=== PATIENT | female | born 1940 | race Caucasian/White ===

== ENCOUNTER 2018-07-08 12:15 | Day surgery (SDC) | payer OTHER ==
[~2018-07-08] VITALS: Ht 149.9 cm; Wt 55.5 kg
[2018-07-08 12:35] VITALS: BP 152/81
[2018-07-08] MEDS ORDERED: MIDAZolam 5mg/5ml vial ONE (13:04)
[2018-07-08] MEDS ORDERED: LIDOcaine Viscous 15ml cup ONE (13:04)
[2018-07-08] MEDS ORDERED: fentaNYL/PF 50MCG/1 ML 2ML syringe ONE (13:04)
[2018-07-08] MEDS ORDERED: PANT-47 PO (13:29)
[2018-07-08] MEDS ORDERED: CITA10TA9 PO (13:29)
[2018-07-08] MEDS ORDERED: ASPI-611 PO (13:30)
[2018-07-08] MEDS ORDERED: METO25TA6 PO (13:30)
[2018-07-08] MEDS ORDERED: SIMV20TA PO (13:30)
[2018-07-08] MEDS ORDERED: SUCR1TAB34 PO (13:31)
[2018-07-08 13:54] VITALS: BP 168/83
[2018-07-08 14:04] VITALS: BP 174/93
[2018-07-08 14:14] VITALS: BP 157/59
== END 2018-07-08 14:35 | disposition home or self-care (01) ==
LOC: GI LAB 12:15
PROVIDERS: ATTEND Internal Medicine Gastroenterology
DX: K22.8 Other specified diseases of esophagus (principal); K44.9 Diaphragmatic hernia without obstruction or gangrene; K29.70 Gastritis, unspecified, without bleeding; K21.9 Gastro-esophageal reflux disease without esophagitis; I10 Essential (primary) hypertension; E78.5 Hyperlipidemia, unspecified; Z95.5 Presence of coronary angioplasty implant and graft; Z86.74 Personal history of sudden cardiac arrest; Z86.79 Personal history of other diseases of the circulatory system; Z87.891 Personal history of nicotine dependence; Z79.82 Long term (current) use of aspirin; Z79.899 Other long term (current) drug therapy; Z98.890 Other specified postprocedural states
CPT/HCPCS: 43239; J2250; J3010; J7030; 99152; A4620